=== PATIENT | female | born 1995 | race Caucasian/White ===

== ENCOUNTER 2022-03-06 09:40 | Emergency (ER) | payer OTHER ==
[2022-03-06] MEDS ORDERED: Acetaminophen/Codeine 30-300mg Tablet ONE (11:07)
== END 2022-03-06 11:26 | disposition home or self-care (01) ==
LOC: CSHERS 09:40
DX: S62.633A Displaced fracture of distal phalanx of left middle finger, initial encounter for closed fracture (principal); S62.637A Displaced fracture of distal phalanx of left little finger, initial encounter for closed fracture; E10.9 Type 1 diabetes mellitus without complications; W21.01XA Struck by football, initial encounter
CPT/HCPCS: 26600